=== PATIENT | female | born 2005 | race Hispanic/Latino ===

== ENCOUNTER 2025-06-10 00:01 | Emergency (ER) | payer SELFPAY ==
[2025-06-10] MEDS ORDERED: hydrOXYzine HCL 25 MG TAB ONE (01:17)
--- NOTE | 2025-06-10 01:26 | ER ---
Nurse's Notes [facility] Name: Ashley Fierro Age: 19 yrs Sex: Female : 2005 Arrival Date: 06/10/2025 Time: 00:01 Bed 15 Private MD: Diagnosis: Panic disorder [episodic paroxysmal anxiety] without agoraphobia Presentation: 06/10 00:10 Chief complaint: Patient states: CHEST PAIN THAT HAS BEEN GOING ON FOR THE PAST TWO ha1 DAYS AFTER SEEING BROTHER HAVING A SEIZURE. HAD A SIMILAR EPISODE ONE YEAR AGO. 00:10 Coronavirus screen: Client denies travel out of the [place] in the last 14 days. ha1 00:14 Ebola Screen: No symptoms or risks identified at this time. Initial Sepsis Screen: Does ha1 the patient meet any 2 criteria? No. Patient's initial sepsis screen is negative. Does the patient have a suspected source of infection? No. Patient's initial sepsis screen is negative. Risk Assessment: Do you want to hurt yourself or someone else? Patient reports no desire to harm self or others. Onset of symptoms was June 10, 2025. 00:14 Method Of Arrival: Ambulatory ha1 00:14 Acuity: MOE 3 ha1 Triage Assessment: 00:43 General: Appears comfortable. Pain: Complains of pain in chest Pain currently is 5 out ha1 of 10 on a pain scale. Quality of pain is described as radiating. Neuro: Level of Consciousness is awake, alert, obeys commands, Oriented to person, place, time, situation. Cardiovascular: Capillary refill < 3 seconds Patient's skin is warm and dry. Respiratory: Airway is patent Respiratory effort is even, unlabored, Respiratory pattern is regular, symmetrical. 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 - Infectious Disease History:: Denies. - Social history:: Smoking status: Patient denies any tobacco usage or history of. Screenin:37 [facility] ED Fall Risk Assessment (Adult) History of falling in the last 3 months, ss12 including since admission No falls in past 3 months (0 pts) Confusion or Disorientation No (0 pts) Intoxicated or Sedated No (0 pts) Impaired Gait No (0 pts) Mobility Assist Device Used No (0 pt) Altered Elimination No (0 pt) Score/Fall Risk Level 0 - 2 = Low Risk Oriented to surroundings, Maintained a safe environment, Educated pt \T\ family on fall prevention, incl call for assistance when getting out of bed, Assessed \T\ reinforced patient's understanding of fall precautions. Abuse screen: Denies threats or abuse. Denies injuries from another. 01:10 Nutritional screening: No deficits noted. Tuberculosis screening: No symptoms or risk ss12 factors identified. Assessment: 00:34 General: Appears in no apparent distress. Behavior is calm, cooperative, quiet. Pain: ss12 Denies pain. Pain: Pain began gradually, soreness in left arm. pt stated no more having the chest pain. Neuro: No deficits noted. Level of Consciousness is awake, alert, obeys commands, Oriented to person, place, time. Cardiovascular: No deficits noted. Patient's skin is warm and dry. Respiratory: No deficits noted. Airway is patent Respiratory effort is even, unlabored, Respiratory pattern is regular, symmetrical. GI: No deficits noted. No signs and/or symptoms were reported involving the gastrointestinal system. : No deficits noted. No signs and/or symptoms were reported regarding the genitourinary system. EENT: No deficits noted. No signs and/or symptoms were reported regarding the EENT system. Derm: No deficits noted. Skin is intact, Skin is dry, Skin is normal. Musculoskeletal: No deficits noted. No signs and/or symptoms reported regarding the musculoskeletal system. 01:30 Reassessment: Patient appears in no apparent distress at this time. Patient and/or ss12 family updated on plan of care and expected duration. Pain level reassessed. Patient is alert, oriented x 3, equal unlabored respirations, skin warm/dry/pink. Vital Signs: 00:10 BP 116 / 78; Pulse 91; Resp 17 S; Temp 98.1(O); Pulse Ox 100% on R/A; Weight 72.57 kg; ha1 Height 5 ft. 3 in. ; Pain 5/10; 00:10 Body Mass Index 28.34 (72.57 kg, 160.02 cm) ha 00:10 Pain Scale: Adult [facility] ED Course: 00:07 Patient arrived in ED. im 00:10 Curt Coreas FNP-C [facility]. dr5 00:10 Oscar Esquivel MD is Attending Physician. dr5 00:22 Miguelina Mcintyre, RN is Primary Nurse. ss12 00:38 Arm band placed on right wrist. ss12 00:43 Triage completed. ha1 01:09 Patient has correct armband on for positive identification. Provided Education on: plan ss12 of care. Client placed on continuous cardiac and pulse oximetry monitoring. NIBP monitoring applied. 01:09 No provider procedures requiring assistance completed. ss12 01:10 Patient maintains SpO2 saturation greater than 95% on room air. ss12 01:18 EKG done, by diagnostic technician. ts3 01:55 Patient did not have IV access during this emergency room visit. ss12 Administered Medications: 01:10 Drug: hydrOXYzine PO 25 mg PO once Route: PO; ss12 01:55 Follow up: Response: No adverse reaction ss12 Medication: 01:10 VIS not applicable for this client. ss12 Outcome: 01:25 Discharge ordered by . dr5 01:55 Discharged to home ambulatory, ss12 01:55 Condition: stable 01:55 Discharge instructions given to patient, family, Instructed on discharge instructions, follow up and referral plans. Demonstrated understanding of instructions, follow-up care, Prescriptions given X 1, 02:08 Patient left the ED. ss12 Signatures: Sharla Iglesias RN RN ha1 Ly Chapman Dustin, FNP-C PRODUCTION PATTERN MAKER-Cdr5 Lili Delgado ts3 Miguelina Mcintyre RN RN ss12 Corrections: (The following items were deleted from the chart) 00:51 00:14 Chief complaint: Patient states: CHEST PAIN THAT HAS BEEN GOING ON FOR THE PAST ha1 TWO DAYS AFTER SEEING BROTHER HAVING A SEIZURE. HAD A SIMILAR EPISODE ONE YEAR AGO ha1 00:51 00:14 Coronavirus screen: Client denies travel out of the [place] in the last 14 days. ha1 ha1 00:51 00:14 BP 116 / 78; Pulse 91bpm; Resp 17bpm; Spontaneous; Pulse Ox 100% RA; Temp 98.1F ha1 Oral; 72.57 kg; Height 5 ft. 3 in.; BMI: 28.3; Pain 5/10, Adult; ha1 02:06 02:05 Reassessment: Patient appears in no apparent distress at this time. Patient ss12 and/or family updated on plan of care and expected duration. Pain level reassessed. Patient is alert, oriented x 3, equal unlabored respirations, skin warm/dry/pink. ss12
--- NOTE | 2025-06-10 01:26 | EDPHYS ---
Physician Documentation [facility] Name: Ashley Fierro Age: 19 yrs Sex: Female : 2005 Arrival Date: 06/10/2025 Time: 00:01 Bed 15 Private MD: ED Physician Oscar Esquivel HPI: 06/10 01:22 This 19 yrs old Female presents to ER via Ambulatory with complaints of Chest dr5 Pain, Arm Pain. 01:22 Onset: The symptoms/episode began/occurred 2 day(s) ago. The patient has experienced dr5 similar episodes in the past, several times. Patient is a 19-year-old female with no past medical history coming in with left-sided upper chest pain that is been going on for the past 2 days. Patient reports that her chest gets worse when she is stressed. Patient reports that her brother has been diagnosed with brain cancer in which did left-sided chest pain started. Patient reports that she is stressed out often due to condition of brother. Patient reports she has not take any medications to try to alleviate chest pain. Patient denies nausea, vomiting, diarrhea, shortness of breath.. 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 - Infectious Disease History:: Denies. - Social history:: Smoking status: Patient denies any tobacco usage or history of. ROS: 01:22 Constitutional: as per hpi dr5 Exam: 01:22 Constitutional: This is a well developed, well nourished patient who is awake, alert, dr5 and in no acute distress. Head/Face: Normocephalic, atraumatic. Eyes: Pupils equal round and reactive to light, extra-ocular motions intact. Lids and lashes normal. Conjunctiva and sclera are non-icteric and not injected. Cornea within normal limits. Periorbital areas with no swelling, redness, or edema. ENT: Nares patent. No nasal discharge, no septal abnormalities noted. Tympanic membranes are normal and external auditory canals are clear. Oropharynx with no redness, swelling, or masses, exudates, or evidence of obstruction, uvula midline. Mucous membranes moist. Chest/axilla: Normal chest wall appearance and motion. Nontender with no deformity. No lesions are appreciated. Cardiovascular: Regular rate and rhythm with a normal S1 and S2. Normal PMI, no JVD. No pulse deficits. Respiratory: Lungs have equal breath sounds bilaterally, clear to auscultation. No rales, rhonchi or wheezes noted. No increased work of breathing, no retractions or nasal flaring. Back: No spinal tenderness. No costovertebral tenderness. Full range of motion. Skin: Warm, dry with normal turgor. Normal color with no rashes, no lesions, and no evidence of cellulitis. MS/ Extremity: Pulses equal, no cyanosis. Neurovascular intact. Full, normal range of motion. Neuro: Awake and alert, GCS 15, oriented to person, place, time, and situation. Cranial nerves II-XII grossly intact. Motor strength 5/5 in all extremities. Sensory grossly intact. Cerebellar exam normal. Normal gait. Vital Signs: 00:10 BP 116 / 78; Pulse 91; Resp 17 S; Temp 98.1(O); Pulse Ox 100% on R/A; Weight 72.57 kg; ha1 Height 5 ft. 3 in. ; Pain 5/10; 00:10 Body Mass Index 28.34 (72.57 kg, 160.02 cm) ha1 00:10 Pain Scale: Adult ha1 MDM: 00:10 Medical Screening Exam initiated dr5 01:16 Differential diagnosis: Panic attack, stress-induced anxiety, stress. Data reviewed: dr5 vital signs, nurses notes, EKG. I considered the following discharge prescriptions or medication management in the emergency department I discussed and recommended Over The Counter medications, Medications were administered in the Emergency Department. See MAR. Independent interpretation of the following test(s) in the Emergency Department EKG: See my EKG interpretation above. Historians other than the Patient: Parent: Mother at bedside. Care significantly affected by the following Social Determinants of Health: Poor access to healthcare and/or lack of insurance, Poor access to transportation, Problems related to employment. Scoring Tools HEART Score: History: ECG: Age: Risk Factors: Troponin: Total Score = 0. Counseling: I had a detailed discussion with the patient and/or guardian regarding the historical points, exam findings, and any diagnostic results supporting the discharge/admit diagnosis, the presence of at least one elevated blood pressure reading (>120/80) during this emergency department visit, the need for outpatient follow up, for definitive care, a family practitioner, to return to the emergency department if symptoms worsen or persist or if there are any questions or concerns that arise at home. Special discussion: I discussed with the patient/guardian in detail that at this point there is no indication for admission to the hospital. It is understood, however, that if the symptoms persist or worsen the patient needs to return immediately for re-evaluation. Based on the history and exam findings, there is no indication for further emergent testing or inpatient evaluation. I discussed with the patient/guardian the need to see the primary care provider for further evaluation of the symptoms. ED course: Will give patient hydroxyzine to take as needed for stress. Recommended patient alternate Tylenol Motrin as needed for pain and fever. Recommend patient follow with primary care doctor. All questions answered. Strict ER precautions given. 06/10 01:07 Order name: EKG - Nurse/Tech; Complete Time: 01:18 dr5 EC:16 Rate is 80 beats/min. Rhythm is regular. QRS [place] is Normal. [place] interval is normal at dr5 166 msec. QRS interval is normal at 102 msec. QT interval is normal at 376 msec. Administered Medications: 01:10 Drug: hydrOXYzine PO 25 mg PO once Route: PO; ss12 01:55 Follow up: Response: No adverse reaction ss12 Disposition: 03:52 Co-signature as Attending Physician, Oscar Esquivel MD I agree with the assessment sp4 and plan of care. I reviewed the patient's care provided by the Advanced Practice Provider and agree with the diagnosis and treatment plan. Disposition Summary: 06/10/25 01:25 Discharge Ordered Notes: Location: Home dr5 Condition: Stable dr5 Diagnosis - Panic disorder [episodic paroxysmal anxiety] without agoraphobia dr5 Followup: dr5 - With: Emergency Department - When: As needed - Reason: Worsening of condition Followup: dr5 - With: Private Physician - When: 1 - 2 days - Reason: Recheck today's complaints, Continuance of care, Re-evaluation by your physician Discharge Instructions: - Discharge Summary Sheet dr5 - Stress, Adult dr5 - Managing Anxiety, Adult dr5 Forms: - Medication Reconciliation Form dr5 - Patient Portal Instructions dr5 - Leadership Thank You Letter dr5 Prescriptions: - Hydroxyzine HCl 25 mg Oral tablet - take 1 tablet ORAL route every 6 hours As needed; 20 tablet; Refills: 0, dr5 Product Selection Permitted Signatures: Sharla Iglesias, RN RN ha1 Oscar Esquivel MD MD sp4 Curt Coreas, VERNON-C PROJECT ANALYST-Cdr5 Miguelina Mcintyre, SANDI RN ss12
[2025-06-10 02:13] VITALS: BP 116/78; TEMP 98.1; O2SAT 100
== END 2025-06-10 02:08 | disposition home or self-care (01) ==
LOC: ER 00:01
DX: F41.0 Panic disorder [episodic paroxysmal anxiety] (principal)
CPT/HCPCS: 93005; 99284

== ENCOUNTER 2025-06-24 22:04 | Emergency (ER) | payer SELFPAY ==
--- OUTSIDE RECORDS SUMMARY | 2025-06-24 22:08 | XMS REPORT | Continuity of Care Document ---
Author Name Unknown Address [address] [facility]. [address] [place] [id number] [facility] [place] Address [address] [facility]. 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 Ordering Clinician Indication Dosage Frequency Signature (SIG) Comments Components Source trazodone 50 mg tablet 8-19 00:00: 00 Yes 12mg Damian Chisholm Dose Unknown 9-01 00:00: 00 Yes Damian Chisholm Dose Unknown 5-12 00:00: 00 Yes Damianvivek Chisholm Dose Unknown 0 8-27 00:00: 00 Yes Damianvivek Chisholm Dose Unknown 8-27 00:00: 00 Yes Damian Suhail Chisholm Dose Unknown 8-27 00:00: 00 Yes Damian Chisholm Bromfed DM 2 mg-30 mg-10 mg/5 mL syrup 2016-10 0-17 00:00: 00 Yes 10mg/5 mL Damian Chisholm omeprazole 20 mg capsule,del ayed release 2016-10 0-09 00:00: 00 Yes 1mg Damian Chisholm loratadine 10 mg tablet 03-05 00:00: 00 Yes 1mg Damian Chisholm loratadine 5 mg/5 mL oral solution 03-01 00:00: 00 Yes 10mg/5 mL Damian Chisholm ranitidine 15 mg/mL syrup 03-01 00:00: 00 Yes 10mg/mL Damian Chisholm Immunizations Ordered Immunization Name Filled Immunization Name Date Status Comments Source Meningococcal MCV4O Meningococcal MCV4O 00:00:00 Completed Damian F Phan Influenza, seasonal, inj Influenza, seasonal, inj 2017-08-06 00:00:00 Completed Damian F Phan Vital Signs Vital Name Observation Time Observation Value Comments S oursandra BP Systolic 2025-06-22 11:30:00 108 mm[Hg] Step hen F Phan BP Diastolic 2025-06-22 11:30:00 51 mm[Hg] Jorge phen F Phan Weight Measured 2025-06-22 11:30:00 144.60 pounds Damian F Phan Height Measured 2025-06-22 11:30:00 63.00 inches Damian F Phan Body Temperature 2025-06-22 11:30:00 97.40 degrees Damian F Phan Heart Rate 2025-06-22 11:30:00 96.00 /min Sheeba en F Phan Respiratory Rate 2025-06-22 11:30:00 18.00 /min Damian F Phan Heart Rate 2025-06-16 09:37:00 82.00 /min Sheeba en F Phan Respiratory Rate 2025-06-16 09:37:00 16.00 /min Damian F Phan BP Systolic 2025-06-16 09:37:00 106 mm[Hg] Step hen F Phan BP Diastolic 2025-06-16 09:37:00 68 mm[Hg] Jorge phen F Phan Weight Measured 2025-06-16 09:37:00 145.60 pounds Damian F Phan Height Measured 2025-06-16 09:37:00 63.00 inches Damian F Phan Body Temperature 2025-06-16 09:37:00 98.20 degrees Damian F Phan BP Systolic 2023-06-04 11:49:00 103 mm[Hg] Step hen F Phan BP Diastolic 2023-06-04 11:49:00 70 mm[Hg] Jorge phen F Phan Weight Measured 2023-06-04 11:49:00 152.60 pounds Damian F Phan Height Measured 2023-06-04 11:49:00 64.00 inches Damian F Phan Body Temperature 2023-06-04 11:49:00 98.10 degrees Damian F Phan Heart Rate 2023-06-04 11:49:00 75.00 /min Sheeba en F Phan Respiratory Rate 2023-06-04 11:49:00 Damian F Phan BP Systolic 2022-06-29 10:15:00 106 mm[Hg] Step hen F Phan BP Diastolic 2022-06-29 10:15:00 73 mm[Hg] Jorge phen F Phan Weight Measured 2022-06-29 10:15:00 165.80 pounds Damian F Phan Height Measured 2022-06-29 10:15:00 64.00 inches Damian F Phan Body Temperature 2022-06-29 10:15:00 98.20 degrees Damian F Phan Heart Rate 2022-06-29 10:15:00 106.00 /min Step hen F Phan Respiratory Rate 2022-06-29 10:15:00 Damian F Phan BP Systolic 2019-06-24 10:44:00 100 mm[Hg] Step hen F Phan BP Diastolic 2019-06-24 10:44:00 67 mm[Hg] Jorge phen F Phan Weight Measured 2019-06-24 10:44:00 152.00 pounds Damian F Phan Height Measured 2019-06-24 10:44:00 63.39 inches Damian F Phan Body Temperature 2019-06-24 10:44:00 97.40 degrees Damian F Phan Heart Rate 2019-06-24 10:44:00 89.00 /min Sheeba en F Phan Respiratory Rate 2019-06-24 10:44:00 Damian F Phan BP Systolic 2019-02-25 14:52:00 112 mm[Hg] Step hen F Phan BP Diastolic 2019-02-25 14:52:00 70 mm[Hg] Jorge phen F Phan Weight Measured 2019-02-25 14:52:00 156.00 pounds Damian F Phan Height Measured 2019-02-25 14:52:00 63.00 inches Damian F Phan Body Temperature 2019-02-25 14:52:00 99.50 degrees Damian F Phan Heart Rate 2019-02-25 14:52:00 76.00 /min Sheeba en F Phan Respiratory Rate 2019-02-25 14:52:00 16.00 /min Damian F Phan BP Systolic 2019-02-12 11:19:00 112 mm[Hg] Step hen F Phan BP Diastolic 2019-02-12 11:19:00 73 mm[Hg] Jorge phen F Phan Weight Measured 2019-02-12 11:19:00 157.80 pounds Damian F Phan Height Measured 2019-02-12 11:19:00 63.00 inches Damian F Phan Body Temperature 2019-02-12 11:19:00 99.70 degrees Damian F Phan Heart Rate 2019-02-12 11:19:00 99.00 /min Sheeba en F Phan Respiratory Rate 2019-02-12 11:19:00 16.00 /min Damian F Phan Heart Rate 2017-11-08 09:36:00 84.00 /min Sheeba en F Phan Respiratory Rate 2017-11-08 09:36:00 16.00 /min Damian F Phan BP Systolic 2017-11-08 09:36:00 100 mm[Hg] Step hen F Phan BP Diastolic 2017-11-08 09:36:00 68 mm[Hg] Jorge phen F Phan Weight Measured 2017-11-08 09:36:00 135.80 pounds Damian F Phan Height Measured 2017-11-08 09:36:00 63.00 inches Damian F Phan Body Temperature 2017-11-08 09:36:00 98.10 degrees Damian F Phan BP Systolic 2017-08-23 11:08:00 107 mm[Hg] Step hen F Phan BP Diastolic 2017-08-23 11:08:00 65 mm[Hg] Jorge phen F Phan Weight Measured 2017-08-23 11:08:00 134.80 pounds Damian F Phan Height Measured 2017-08-23 11:08:00 63.00 inches Damian F Phan Body Temperature 2017-08-23 11:08:00 98.40 degrees Damian F Phan Heart Rate 2017-08-23 11:08:00 83.00 /min Sheeba en F Phan Respiratory Rate 2017-08-23 11:08:00 18.00 /min Damian F Phan BP Systolic 2017-08-17 09:34:00 114 mm[Hg] Step hen F Phan BP Diastolic 2017-08-17 09:34:00 71 mm[Hg] Jorge phen F Phan Weight Measured 2017-08-17 09:34:00 133.60 pounds Damian F Phan Height Measured 2017-08-17 09:34:00 63.00 inches Damian F Phan Body Temperature 2017-08-17 09:34:00 98.30 degrees Damian F Phan Heart Rate 2017-08-17 09:34:00 83.00 /min Sheeba en Suhail Chisholm Respiratory Rate 2017-08-17 09:34:00 16.00 /min Damian Chisholm BP Systolic 2017-08-14 15:55:00 108 mm[Hg] Usman Chisholm BP Diastolic 2017-08-14 15:55:00 70 mm[Hg] Jorge Chisholm Weight Measured 2017-08-14 15:55:00 137.00 pounds Damian Chisholm Height Measured 2017-08-14 15:55:00 62.50 inches Damian Chisholm Body Temperature 2017-08-14 15:55:00 98.40 degrees Damian Chisholm Heart Rate 2017-08-14 15:55:00 96.00 /min Sheeba en Suhail Chisholm Respiratory Rate 2017-08-14 15:55:00 18.00 /min Damian Chisholm Encounters Start Date/Time End Date/Time Encounter Type Admission Type Attending [facility] Care Department Encounter ID Source 2025-06-22 11:15:57 2025-06-22 11:15:57 Outpatient SFA SFA [id number] Damian Chisholm 2025-06-22 00:00:00 2025-06-22 00:00:00 Outpatient Visit [facility] [id number] Damian Chisholm 2025-06-16 09:29:46 2025-06-16 09:29:46 Outpatient SFA [facility] [id number] Damian Chisholm 2025-06-16 00:00:00 2025-06-16 00:00:00 Outpatient Visit [facility] [id number] Damian Chisholm 2023-09-18 11:56:57 2023-09-18 11:56:57 Outpatient SFA SFA [id number] Damian Chisholm 2023-06-04 11:48:24 2023-06-04 11:48:24 Outpatient SFA SFA [id number] Damian Chisholm Results Test Description Test Time Test Comments Results Result Co mments Source Damian ChisholmCOMPREHENSIVE METABOLIC [id number] 00:00:00* Test Item Value Reference Range Interpretation Comme nts GLUCOSE (test code = 2345-7) 67 mg/dL UREA NITROGEN (BUN) (test code = 3094-0) 11 mg/dL CREATININE (test code = 2160-0) 0.45 mg/dL EGFR (test code = 82722-5) 141 mL/min/1.73m2 BUN/CREATININE RATIO (test code = 3097-3) 24 (calc) SODIUM (test code = 2951-2) 138 mmol/L POTASSIUM (test code = 2823-3) 3.7 mmol/L CHLORIDE (test code = 2075-0) 104 mmol/L CARBON DIOXIDE (test code = 8-9) 21 mmol/L CALCIUM (test code = 85028-1) 9.6 mg/dL PROTEIN, TOTAL (test code = 2885-2) 8.1 g/dL ALBUMIN (test code = 1751-7) 4.8 g/dL GLOBULIN (test code = 66883-3) 3.3 g/dL(calc) ALBUMIN/GLOBULIN RATIO (test code = 1759-0) 1.5 (calc) BILIRUBIN, TOTAL (test code = 1975-2) 0.5 mg/dL ALKALINE PHOSPHATASE (test code = 6768-6) 75 U/L AST (test code = 1920-8) 19 U/L ALT (test code = 1742-6) 10 U/L Damian Maria, [id number] 09:17:55SPECIMEN NUMBER: [id number] CULTURE, URINE SPECIMEN NUMBER: [id number] SOURCE: URINE REPORT STATUS: FINAL FINAL REPORT: 07/01/2022 10-50,000 CFU/ML UROGENITAL ALEX PRESENT NO COMMON PATHOGENS UNLESS OTHERWISE INDICATED, ALL TESTING PERFORMED [facility] [address] [place] [address] SENIOR ACTUARIAL ANALYST: RUKHSANA HORTON M.D. CLIA NUMBER [id number] [place]. [id number], [id number] 00:00:00* Test Item Value Reference Range Interpretation Comme nts CULTURE, URINE (test code = 00074) SPECIMEN NUMBER: [id number] Damian Maria, [id number] 00:00:00* Test Item Value Reference Range Interpretation Comme nts CULTURE, URINE (test code = 88556) SPECIMEN NUMBER: [id number] Damian ChisholmH. PYLORI (BREATH), [id number] 13:25:43* Test Item Value Reference Range Interpretation Comme nts H. PYLORI (BREATH) (test code = 38457) POSITIVE NEGATIVE A PATIENT HEIGHT (test code = 97875) 73 INCHES PATIENT WEIGHT (test code = 59404) 172 LBS Methodology is i nfrared spectroscopy for carbon isotopes before andafter Pranactin-Citric solution. For pediatric patients (3-17 years),raw change from baseline (delta over baseline) is corrected forheight, weight, age, and gender using pediatric urea hydrolysiscalculator at http://[employer]ath[employer]patch. UNLESS OTHERWISE INDICATED, ALL TESTING PERFORMED [facility] [address] [place] [address] SENIOR ACTUARIAL ANALYST: RUKHSANA HORTON M.D. CLIA NUMBER [id number] [facility] [place] [place]. [id number] H. PYLORI (BREATH), [id number] 00:00:00* Test Item Value Reference Range Interpretation Comme nts H. PYLORI (BREATH) (test cod e = 26087) POSITIVE PATIENT HEIGHT (test code = 52650) 73 INCHES PATIENT WEIGHT (test code = 35451) 172 LBS Damian ChisholmH. PYLORI (BREATH), [id number] 00:00:00* Test Item Value Reference Range Interpretation Comme nts H. PYLORI (BREATH) (test cod e = 31814) POSITIVE PATIENT HEIGHT (test code = 78796) 73 INCHES PATIENT WEIGHT (test code = 32577) 172 LBS Damian ChisholmSARS-CoV-2 (COVID-19), RT-PCR/[id number] 10:57:01* Test Item Value Reference Range Interpretation Comments SARS-CoV-2 INTERPRETATION (test code = 10138) NEGATIVE SEE NOTE SARS-CoV-2 R NA NOT DETECTEDNegative results do not preclude SARS-CoV-2 infection and should notbe used as the sole basis for patient management decisions. Negativeresults must be combined with clinical observations, patient history,and epidemiological information. Optimum specimen types and timingfor peak viral levels during infections caused by SARS-CoV-2 have notbeen determined. Collection of multiple specimens or types ofspecimens may be necessary to detect virus. Improper specimencollection and handling, sequence variability under primers/probes,or organism present below the limit of detection may lead to falsenegative results. Positive and negative predictive values oftesting are highly dependent on prevalence. False negative testresults are more likely when prevalence is high. SOURCE (test code = 60426) NASOPHARYNGEAL Note: Methodolog y is Janice Gabrielle Real-Time RT-PCR. The expected result or reference range is NEGATIVE (Not Detected). For more information regarding COVID-19 testing to include clinicalinformation, methodology detail, intended use, FDA authorization andrecommended fact sheets for patients or healthcare providers, see NewTest Announcement: SARS-CoV-2 (COVID-19) by NAAT at URL below (note,fact sheets are provided by method given in report:[email or web address] Alternatively, see downloadable PDF fact sheet at:[email or web address] Note: Methodology is Janice Gabrielle Real-Time RT-PCR. The expected result or reference range is NEGATIVE (Not Detected). For more information regarding COVID-19 testing to include clinicalinformation, methodology detail, intended use, FDA authorization andrecommended fact sheets for patients or healthcare providers, see NewTest Announcement: SARS-CoV-2 (COVID-19) by NAAT at URL below (note,fact sheets are provided by method given in report:[email or web address] Alternatively, see downloadable PDF fact sheet at:[email or web address].[email or web address]-PCR UNLESS OTHERWISE INDICATED, ALL TESTING PERFORMED [facility] [address] [place] [id number] SENIOR ACTUARIAL ANALYST: RUHKSANA HORTON M.D. CLIA NUMBER [id number] [facility] [place]. [id number] SARS-CoV-2 (COVID-19) by RT-PCR (HIGH RISK)2021-11-09 00:00:00* Test Item Value Reference Range Interpretation Comme nts SARS-CoV-2 INTERPRETATION (test code = 29826) NEGATIVE SOURCE (test code = 49933) NASOPHARYNGEAL Damian Jang [id number] (COVID-19) by RT-PCR (HIGH RISK)2021-11-09 00:00:00* Test Item Value Reference Range Interpretation Comme nts SARS-CoV-2 INTERPRETATION (test code = 83237) NEGATIVE SOURCE (test code = 69581) NASOPHARYNGEAL Damian Jang BocmnjLEPL-GlL-2 (COVID-19) by RT-PCR (HIGH RISK)2020-12-01 00:00:00* Test Item Value Reference Range Interpretation Comme nts SARS-CoV-2 INTERPRETATION (t est code = 09171) NEGATIVE SOURCE (test code = 97454) NOT SPECIFIED Damian Jang [id number]-[id number] (COVID-19) by RT-PCR (HIGH RISK)2020-12-01 00:00:00* Test Item Value Reference Range Interpretation Comme nts SARS-CoV-2 INTERPRETATION (t est code = 68899) NEGATIVE SOURCE (test code = 62953) NOT SPECIFIED Damian ChisholmCOMPREHENSIVE METABOLIC [id number] 00:00:00* Test Item Value Reference Range Interpretation Comme nts GLUCOSE (test code = 2217) 85 MG/DL BUN (test code = 2208) 7 MG/DL CREATININE (test code = 2214) 0.46 MG/DL eGFR AMER. (test code = 27496) (NOTE) ML/MIN/1.73 eGFR NON- AMER. (test code = 11207) NO CALC ML/MIN/1.73 CALC BUN/CREAT (test code = 2235) 15 RATIO SODIUM (test code = 2231) 141 MEQ/L POTASSIUM (test code = 2228) 4.3 MEQ/L CHLORIDE (test code = 2215) 104 MEQ/L CARBON DIOXIDE (test code = 2206) 24 MEQ/L CALCIUM (test code = 2209) 9.8 MG/DL PROTEIN, TOTAL (test code = 2229) 7.7 G/DL ALBUMIN (test code = 2201) 4.7 G/DL CALC GLOBULIN (test code = 2240) 3.0 G/DL CALC A/G RATIO (test code = 2234) 1.6 RATIO BILIRUBIN, TOTAL (test code = 2207) 0.3 MG/DL ALKALINE PHOSPHATASE (test code = 2204) 132 U/L AST (test code = 2218) 30 U/L ALT (test code = 2219) 24 U/L Damian Jang AustinLIPID [id number] 00:00:00* Test Item Value Reference Range Interpretation Comme nts CHOLESTEROL (test code = 2210) 126 MG/DL TRIGLYCERIDES (test code = 2232) 87 MG/DL HDL CHOLESTEROL (test code = 2220) 53 MG/DL CALC LDL CHOL (test code = 2237) 56 MG/DL RISK RATIO LDL/HDL (test cod e = 2238) 1.05 RATIO Damian Jang [facility]PRE[facility]IVE METABOLIC [id number] 00:00:00* Test Item Value Reference Range Interpretation Comme nts GLUCOSE (test code = 2217) 85 MG/DL BUN (test code = 2208) 7 MG/DL CREATININE (test code = 2214) 0.46 MG/DL eGFR AMER. (test code = 66343) (NOTE) ML/MIN/1.73 eGFR NON- AMER. (test code = 52048) NO CALC ML/MIN/1.73 CALC BUN/CREAT (test code = 2235) 15 RATIO SODIUM (test code = 2231) 141 MEQ/L POTASSIUM (test code = 2228) 4.3 MEQ/L CHLORIDE (test code = 2215) 104 MEQ/L CARBON DIOXIDE (test code = 2206) 24 MEQ/L CALCIUM (test code = 2209) 9.8 MG/DL PROTEIN, TOTAL (test code = 2229) 7.7 G/DL ALBUMIN (test code = 2201) 4.7 G/DL CALC GLOBULIN (test code = 2240) 3.0 G/DL CALC A/G RATIO (test code = 2234) 1.6 RATIO BILIRUBIN, TOTAL (test code = 2207) 0.3 MG/DL ALKALINE PHOSPHATASE (test code = 2204) 132 U/L AST (test code = 2218) 30 U/L ALT (test code = 2219) 24 U/L Damian Jang AustinLIPID [id number] 00:00:00* Test Item Value Reference Range Interpretation Comme nts CHOLESTEROL (test code = 2210) 126 MG/DL TRIGLYCERIDES (test code = 2232) 87 MG/DL HDL CHOLESTEROL (test code = 2220) 53 MG/DL CALC LDL CHOL (test code = 2237) 56 MG/DL RISK RATIO LDL/HDL (test cod e = 2238) 1.05 RATIO Damian ChisholmCOMPREHENSIVE METABOLIC [id number] 00:00:00* Test Item Value Reference Range Interpretation Comme nts GLUCOSE (test code = 2217) 91 MG/DL BUN (test code = 2208) 11 MG/DL CREATININE (test code = 2214) 0.41 MG/DL eGFR AMER. (test code = 40713) (NOTE) ML/MIN/1.73 eGFR NON- AMER. (test code = 42653) NO CALC ML/MIN/1.73 CALC BUN/CREAT (test code = 2235) 27 RATIO SODIUM (test code = 2231) 143 MEQ/L POTASSIUM (test code = 2228) 4.1 MEQ/L CHLORIDE (test code = 2215) 104 MEQ/L CARBON DIOXIDE (test code = 2206) 23 MEQ/L CALCIUM (test code = 2209) 9.8 MG/DL PROTEIN, TOTAL (test code = 2229) 8.0 G/DL ALBUMIN (test code = 2201) 4.8 G/DL CALC GLOBULIN (test code = 2240) 3.2 G/DL CALC A/G RATIO (test code = 2234) 1.5 RATIO BILIRUBIN, TOTAL (test code = 2207) 0.5 MG/DL ALKALINE PHOSPHATASE (test code = 2204) 195 U/L AST (test code = 2218) 26 U/L ALT (test code = 2219) 19 U/L Damian ChisholmCBC W/AUTO [id number] 00:00:00* Test Item Value Reference Range Interpretation Comme nts WBC (test code = 1001) 6.0 K/UL RBC (test code = 1002) 4.83 M/UL HEMOGLOBIN (test code = 1003) 13.6 G/DL HEMATOCRIT (test code = 1004) 40.4 % MCV (test code = 1005) 83.6 fL MCH (test code = 1006) 28.2 PG MCHC (test code = 1007) 33.7 G/DL RDW (test code = 1038) 12.5 % NEUTROPHILS (test code = 1008) 50.9 % LYMPHOCYTES (test code = 1010) 41.0 % MONOCYTES (test code = 1011) 5.2 % EOSINOPHILS (test code = 1012) 2.7 % BASOPHILS (test code = 1013) 0.2 % PLATELET COUNT (test code = 1015) 334 K/UL Damian ChisholmH. PYLORI IgG, [id number] 00:00:00* Test Item Value Reference Range Interpretation Comme nts H. PYLORI IgG, QUAL (test co de = 4565) NEGATIVE Damian ChisholmCOMPREHENSIVE METABOLIC [id number] 00:00:00* Test Item Value Reference Range Interpretation Comme nts GLUCOSE (test code = 2217) 91 MG/DL BUN (test code = 2208) 11 MG/DL CREATININE (test code = 2214) 0.41 MG/DL eGFR AMER. (test code = 67280) (NOTE) ML/MIN/1.73 eGFR NON- AMER. (test code = 30201) NO CALC ML/MIN/1.73 CALC BUN/CREAT (test code = 2235) 27 RATIO SODIUM (test code = 2231) 143 MEQ/L POTASSIUM (test code = 2228) 4.1 MEQ/L CHLORIDE (test code = 2215) 104 MEQ/L CARBON DIOXIDE (test code = 2206) 23 MEQ/L CALCIUM (test code = 2209) 9.8 MG/DL PROTEIN, TOTAL (test code = 2229) 8.0 G/DL ALBUMIN (test code = 2201) 4.8 G/DL CALC GLOBULIN (test code = 2240) 3.2 G/DL CALC A/G RATIO (test code = 2234) 1.5 RATIO BILIRUBIN, TOTAL (test code = 2207) 0.5 MG/DL ALKALINE PHOSPHATASE (test code = 2204) 195 U/L AST (test code = 2218) 26 U/L ALT (test code = 2219) 19 U/L Damian ChisholmCBC W/AUTO [id number] 00:00:00* Test Item Value Reference Range Interpretation Comme nts WBC (test code = 1001) 6.0 K/UL RBC (test code = 1002) 4.83 M/UL HEMOGLOBIN (test code = 1003) 13.6 G/DL HEMATOCRIT (test code = 1004) 40.4 % MCV (test code = 1005) 83.6 fL MCH (test code = 1006) 28.2 PG MCHC (test code = 1007) 33.7 G/DL RDW (test code = 1038) 12.5 % NEUTROPHILS (test code = 1008) 50.9 % LYMPHOCYTES (test code = 1010) 41.0 % MONOCYTES (test code = 1011) 5.2 % EOSINOPHILS (test code = 1012) 2.7 % BASOPHILS (test code = 1013) 0.2 % PLATELET COUNT (test code = 1015) 334 K/UL Damian ChisholmH. PYLORI IgG, [id number] 00:00:00* Test Item Value Reference Range Interpretation Comme nts H. PYLORI IgG, QUAL (test co de = 4565) NEGATIVE Damian Chisholm Notes Date/Time Note Provider Source Damian Chisholm [facility]2025-08-19 00:00:00 Damian Chisholm [facility]
--- NOTE | 2025-06-24 22:30 | RAD REPORT ---
Procedure: Chest Single View HISTORY: Chest pain COMPARISON: none FINDINGS: The lungs appear clear of acute infiltrate. No significant pleural effusion noted. The heart is normal size. IMPRESSION: No acute abnormality is displayed.
[2025-06-24] MEDS ORDERED: FAMOTIDINE 20 MG/2 ML VIAL IV ONE (23:20)
[2025-06-24] MEDS ORDERED: ONDANSETRON 4 MG/2 ML VIAL ONE (23:20)
[2025-06-24] MEDS ORDERED: KETOROLAC 30 MG/ML INJ ONE (23:20)
[2025-06-24] MEDS ORDERED: NA CHLORIDE 0.9% 1,000 ML ONE (23:21)
[2025-06-24 23:49] LABS: Absolute Lymphocytes (CBC) 1.9 K/uL (0.7-4.9); Hematocrit 32.1 % (36.0-45.0); Hemoglobin 10.5 g/dL (12.0-15.0); MCH 24.8 pg (27.0-35.0); MCHC 32.5 g/dL (32.0-36.0); MCV 76.1 fL (80-100); MPV 9.5 fL (7.6-11.3); Nucleated RBC Absolute Count 0.0 (0-0); Nucleated Red Blood Cells % 0.0 % (0-0); RBC Red Blood Cell Count 4.22 M/uL (3.86-4.86); White Blood Count 7.00 thou/uL (4.3-10.9)
[2025-06-25 00:02] LABS: ALT/SGPT 19 U/L (13-56); AST/SGOT 15 U/L (15-37); Albumin 4.0 g/dL (3.4-5.0); Albumin/Globulin Ratio 1.0 (1.1-1.8); Alkaline Phosphatase 71 U/L (45-117); Anion Gap 8.6 mEq/L (5.0-15.0); BUN Blood Urea Nitrogen 5 mg/dL (7-18); Globulin 4.0 g/dL (2.3-3.5); Glucose Level 96 mg/dL (74-106); Lipase 34 U/L (13-75); Potassium 3.6 mEq/L (3.5-5.1)
[2025-06-25 00:06] LABS: Troponin High Sensitivity < 3.0 pg/mL (<58.9)
--- NOTE | 2025-06-25 00:27 | ER ---
Nurse's Notes [facility] Name: Ashley Fierro Age: 19 yrs Sex: Female : 2005 Arrival Date: 06/24/2025 Time: 22:04 Bed 24 Private MD: Diagnosis: Chest pain, unspecified Presentation: 06/24 22:15 Chief complaint: Patient states: chest pain off and on x 2 days. Coronavirus screen: kj2 Client denies travel out of the [place] in the last 14 days. Ebola Screen: No symptoms or risks identified at this time. Initial Sepsis Screen: Does the patient meet any 2 criteria? No. Patient's initial sepsis screen is negative. Does the patient have a suspected source of infection? No. Patient's initial sepsis screen is negative. Risk Assessment: Do you want to hurt yourself or someone else? Patient reports no desire to harm self or others. Onset of symptoms was June 24, 2025. 22:15 Method Of Arrival: Ambulatory [facility] 22:15 Acuity: MOE 3 kj2 Triage Assessment: 22:30 General: Appears in no apparent distress. Behavior is cooperative. Pain: Complains of kj2 pain in chest Pain currently is 4 out of 10 on a pain scale. Neuro: Level of Consciousness is awake, alert, obeys commands, Oriented to person, place, time, situation. Cardiovascular: Patient's skin is warm and dry. Respiratory: Airway is patent Respiratory effort is even, unlabored. GI: No signs and/or symptoms were reported involving the gastrointestinal system. : No signs and/or symptoms were reported regarding the genitourinary system. Historical: - Allergies: 23:43 No Known Allergies; kj2 - Immunization history:: Adult Immunizations unknown. - Infectious Disease History:: Denies. - Social history:: Smoking status: unknown. Screenin:30 [facility] ED Fall Risk Assessment (Adult) History of falling in the last 3 months, kj2 including since admission No falls in past 3 months (0 pts) Confusion or Disorientation No (0 pts) Intoxicated or Sedated No (0 pts) Impaired Gait No (0 pts) Mobility Assist Device Used No (0 pt) Altered Elimination No (0 pt) Score/Fall Risk Level 0 - 2 = Low Risk Maintained a safe environment, Hourly rounding (assess needs \T\ fall precautionary measures) done. Abuse screen: Denies threats or abuse. Denies injuries from another. Nutritional screening: No deficits noted. Tuberculosis screening: No symptoms or risk factors identified. Assessment: 22:30 General: see triage assessment. kj2 23:30 Reassessment: Patient appears in no apparent distress at this time. Patient and/or kj2 family updated on plan of care and expected duration. Pain level reassessed. Patient is alert, oriented x 3, equal unlabored respirations, skin warm/dry/pink. 23:46 Reassessment: Reassessment: Patient appears in no apparent distress at this time. kj2 Patient and/or family updated on plan of care and expected duration. Pain level reassessed. Patient is alert, oriented x 3, equal unlabored respirations, skin warm/dry/pink. Vital Signs: 22:30 BP 112 / 72 Supine; Pulse 94; Resp 12 S; Temp 98.4; Pulse Ox 100% on R/A; sa1 23:30 BP 136 / 84; Pulse 82; Resp 18; Pulse Ox 100% on R/A; kj2 ED Course: 22:05 Patient arrived in ED. jj6 22:11 June Randle FNP-C is PHCP. kb 22:11 Seth Hernandez MD is Attending Physician. kb 22:27 XRAY Chest (1 view) In Process Unspecified. EDMS 22:30 Patient has correct armband on for positive identification. Bed in low position. Call kj2 light in reach. Adult w/ patient. Provided Education on: call light. Client placed on continuous cardiac and pulse oximetry monitoring. NIBP monitoring applied. 22:32 EKG done, by ED staff. sa1 22:40 Missed attempt(s): 20 gauge in left antecubital area. kj2 22:45 Inserted saline lock: 20 gauge in right antecubital area, using aseptic technique. kj2 Blood collected. Flushed with 10 mL NS. 22:54 Tanya Castro RN is Primary Nurse. kj2 23:42 Triage completed. kj2 23:45 No provider procedures requiring assistance completed. kj2 23:47 Inserted saline lock: 20 gauge in left antecubital area, using aseptic technique. kj2 06/25 00:19 Report given to Linda Oneill RN. kj2 02:13 IV discontinued, intact, bleeding controlled, No redness/swelling at site. Pressure vc1 dressing applied. Administered Medications: 06/24 23:31 Drug: Famotidine IVP 20 mg IVP once; dilute with 10 mL 0.9% NaCl; give over 2 minutes kj2 Route: IVP; Site: right antecubital; 23:31 Drug: TORadol - Ketorolac IVP 15 mg IVP once Route: IVP; Site: right antecubital; kj2 23:31 Drug: Ondansetron IVP 4 mg IVP once; over 2 minutes Route: IVP; Site: right antecubital;kj2 23:31 Drug: NS 0.9% IV 1000 ml IV at 1 bolus Per protocol; to be given as a bolus over 60 kj2 minutes Route: IV; Rate: 1 bolus; Site: right antecubital; Medication: 23:47 VIS not applicable for this client. kj2 Outcome: 06/25 00:27 Discharge ordered by . panchito 02:12 Discharged to home ambulatory, vc1 02:12 Condition: good 02:12 Discharge instructions given to patient, Instructed on discharge instructions, follow up and referral plans. Demonstrated understanding of instructions, follow-up care, 02:13 Patient left the ED. vc1 Signatures: Dispatcher [employer] EDMS June Randle, ANTONIO VAZQUEZP-Olimpia Meloj6 Linda Bryan, RN RN vc1 Sultan keli Engle Krystal, SANDI RN kj2 Corrections: (The following items were deleted from the chart) 00:20 06/24 23:46 Reassessment: kj2 kj2 06/25 00:21 00:20 Reassessment: kj2 kj2
--- NOTE | 2025-06-25 00:27 | EDPHYS ---
Physician Documentation [facility] Name: Ashley Fierro Age: 19 yrs Sex: Female : 2005 Arrival Date: 06/24/2025 Time: 22:04 Bed 24 Private MD: ED Physician Seth Hernandez HPI: 06/24 22:34 This 19 yrs old Female presents to ER via Unassigned with complaints of Chest kb Pain. 22:34 Pt is a 19 year old female who presents for chest pain, upper abd pain, dizziness that kb started a few weeks ago, but has been worse today. States she was seen by PCP for this and told her iron was low. States she has been taking vitamins with iron since then, but symptoms aren't getting any better. Historical: - Allergies: 23:43 No Known Allergies; kj2 - Immunization history:: Adult Immunizations unknown. - Infectious Disease History:: Denies. - Social history:: Smoking status: unknown. ROS: 22:33 Constitutional: As per HPI kb Exam: 22:33 Constitutional: This is a well developed, well nourished patient who is awake, alert, kb and in no acute distress. Head/Face: Normocephalic, atraumatic. ENT: Moist Mucous membranes Cardiovascular: Regular rate Respiratory: Respirations even and unlabored. No increased work of breathing. Talking in full sentences Skin: Warm, dry with normal turgor. Normal color. MS/ Extremity: Pulses equal, no cyanosis. Neurovascular intact. Full, normal range of motion. Neuro: Awake and alert, GCS 15, oriented to person, place, time, and situation. 22:33 ECG was reviewed by the Attending Physician. 22:33 Abdomen/GI: Inspection: abdomen appears normal, Bowel sounds: normal, Palpation: soft, in all quadrants, mild abdominal tenderness, in the epigastric area, Vital Signs: 22:30 BP 112 / 72 Supine; Pulse 94; Resp 12 S; Temp 98.4; Pulse Ox 100% on R/A; sa1 23:30 BP 136 / 84; Pulse 82; Resp 18; Pulse Ox 100% on R/A; kj2 MDM: 22:11 Medical Screening Exam initiated kb 06/25 00:26 Differential diagnosis: arrhythmia, acute mi, chest wall pain, anemia, dehydration. kb Data reviewed: vital signs, nurses notes. Historians other than the Patient: Parent: mother. Counseling: I had a detailed discussion with the patient and/or guardian regarding the historical points, exam findings, and any diagnostic results supporting the discharge/admit diagnosis, lab results, radiology results, the need for outpatient follow up, a family practitioner, to return to the emergency department if symptoms worsen or persist or if there are any questions or concerns that arise at home. 06/24 22:17 Order name: CBC with Diff; Complete Time: 00:05 kb 06/24 22:17 Order name: CMP; Complete Time: 00:12 kb 06/24 22:17 Order name: Lipase; Complete Time: 00:12 kb 06/24 22:17 Order name: Troponin HS; Complete Time: 00:12 kb 06/24 22:17 Order name: XRAY Chest (1 view); Complete Time: 22:36 kb 06/24 22:17 Order name: EKG; Complete Time: 22:17 kb 06/24 22:17 Order name: IV Saline Lock; Complete Time: 23:31 kb 06/24 22:17 Order name: Labs collected and sent; Complete Time: 23:31 kb 06/24 22:17 Order name: EKG - Nurse/Tech; Complete Time: 23:31 kb EC/27 22:33 Rate is 87 beats/min. Rhythm is regular. QRS [place] is Normal. SC interval is normal at kb 152 msec. QRS interval is normal at 88 msec. QT interval is normal at 418 msec. Administered Medications: 23:31 Drug: Famotidine IVP 20 mg IVP once; dilute with 10 mL 0.9% NaCl; give over 2 minutes kj2 Route: IVP; Site: right antecubital; 23:31 Drug: TORadol - Ketorolac IVP 15 mg IVP once Route: IVP; Site: right antecubital; kj2 23:31 Drug: Ondansetron IVP 4 mg IVP once; over 2 minutes Route: IVP; Site: right antecubital;kj2 23:31 Drug: NS 0.9% IV 1000 ml IV at 1 bolus Per protocol; to be given as a bolus over 60 kj2 minutes Route: IV; Rate: 1 bolus; Site: right antecubital; Disposition: 06/25 07:36 I reviewed the patient's care provided by the Advanced Practice Provider and agree with tw7 the diagnosis and treatment plan. Disposition Summary: 06/25/25 00:27 Discharge Ordered Notes: Location: Home kb Condition: Stable kb Diagnosis - Chest pain, unspecified kb Followup: kb - With: Emergency Department - When: As needed - Reason: Worsening of condition Followup: kb - With: Private Physician - When: 2 - 3 days - Reason: Recheck today's complaints, Continuance of care, Re-evaluation by your physician Discharge Instructions: - Discharge Summary Sheet kb - Nonspecific Chest Pain, Adult, [id number] kb Forms: - Medication Reconciliation Form kb - Antibiotic Education kb - Prescription Opioid Use kb - Patient Portal Instructions kb - Leadership Thank You Letter kb Signatures: Dispatcher [employer] EDJune Hyatt, VERNON-Mai JUNIOR-Tanya Walker, RN RN kj2 Seth Hernandez MD MD tw7
[2025-06-25 14:04] VITALS: TEMP 98.4; O2SAT 100
[2025-06-25 14:05] VITALS: BP 136/84
== END 2025-06-25 02:13 | disposition home or self-care (01) ==
LOC: ER 22:04
DX: R07.9 Chest pain, unspecified (principal)
CPT/HCPCS: 36415; 71045; 80053; 83690; 84484; 85025; 93005; 96374; 96375; 99284; J2405; J7030

== ENCOUNTER 2025-08-10 06:50 | Day surgery (SDC) | payer OTHER ==
[2025-08-10] MEDS: Ringers Lactate 1,000 ML IV ONE (07:30)
[2025-08-10 07:51] LABS: Absolute Lymphocytes (CBC) 1.9 K/uL (0.7-4.9); Hematocrit 32.5 % (36.0-45.0); Hemoglobin 10.6 g/dL (12.0-15.0); MCH 24.3 pg (27.0-35.0); MCHC 32.6 g/dL (32.0-36.0); MCV 74.5 fL (80-100); MPV 9.7 fL (7.6-11.3); Nucleated RBC Absolute Count 0.0 (0-0); Nucleated Red Blood Cells % 0.1 % (0-0); RBC Red Blood Cell Count 4.36 M/uL (3.86-4.86); White Blood Count 5.70 thou/uL (4.3-10.9)
[2025-08-10 08:12] LABS: ALT/SGPT 23 U/L (13-56); AST/SGOT 20 U/L (15-37); Albumin 4.0 g/dL (3.4-5.0); Albumin/Globulin Ratio 1.0 (1.1-1.8); Alkaline Phosphatase 59 U/L (45-117); Anion Gap 9.3 mEq/L (5.0-15.0); BUN Blood Urea Nitrogen 5 mg/dL (7-18); Globulin 3.9 g/dL (2.3-3.5); Glucose Level 79 mg/dL (74-106); Lipase 24 U/L (13-75); Potassium 3.3 mEq/L (3.5-5.1)
[2025-08-10 08:16] LABS: Bilirubin Indirect, Calculated 0.2 mg/dL (0.2-0.8)
[2025-08-10] MEDS ORDERED: ROCURONIUM 50 MG/5 ML VIAL IV ONE (08:23)
[2025-08-10] MEDS ORDERED: KETOROLAC 30 MG/ML INJ ONE (08:23)
[2025-08-10] MEDS ORDERED: ONDANSETRON 4 MG/2 ML VIAL ONE (08:23)
[2025-08-10] MEDS ORDERED: LIDOCAINE 2% MPF 5 ML VIAL ONE (08:23)
[2025-08-10] MEDS ORDERED: FENTANYL CITR 100 MCG/2 ML ONE (08:24)
[2025-08-10] MEDS ORDERED: MIDAZOLAM HCL 2 MG/2 ML INJ ONE (08:24)
[2025-08-10] MEDS: CEFOXITIN SODIUM 1 GM/VIAL ONE (09:12)
[2025-08-10] MEDS ORDERED: NEOSTIGMINE 1 MG/ML -10 ML VIAL ONE (09:58)
[2025-08-10] MEDS ORDERED: GLYCOPYRROLATE 0.2 MG/ML SYR ONE (09:58)
[2025-08-10] MEDS ORDERED: Ringers Lactate 1,000 ML IV ONE (10:06)
--- NOTE | 2025-08-10 10:10 | P.BOP ---
Preoperative diagnosis: acute cholecystitis, symptomatic cholelithiasis Postoperative diagnosis: same Primary procedure: Laparoscopic cholecystectomy Estimated blood loss: <10cc Specimen: gb Findings: as above Anesthesia: General Complications: None Transferred to: Recovery Room Condition: Good
[2025-08-10] MEDS: SUGAMMADEX SODIUM 200 MG/2 ML VIAL IV ONE (10:22)
[2025-08-10] MEDS: HYDROMORPHONE HCL 0.5 MG/0.5 ML INJ ONE ×2 (10:38→10:50)
[2025-08-10] MEDS: ONDANSETRON 4 MG/2 ML VIAL ONE (10:41)
[2025-08-10] MEDS: PROMETHAZINE INJ 25 MG/ML AMP ONE (10:43)
[2025-08-10] MEDS: CODEINE 30MG/APAP 300MG TAB ONE (11:40)
[2025-08-10 12:16] VITALS: BP 112/57; TEMP 98.2; O2SAT 100
--- NOTE | 2025-08-10 12:22 | OP ---
Date of Procedure: 08/10/2025 Surgeon: Anil Barber MD Preoperative Diagnoses: Acute cholecystitis, symptomatic cholelithiasis. Postoperative Diagnoses: Acute cholecystitis, symptomatic cholelithiasis. Procedure: Laparoscopic cholecystectomy. Estimated Blood Loss: Less than 10 cc. Specimen: Gallbladder. Anesthesia: General plus local. Complications: None. Indications: This is a case of a 19-year-old patient comes to us with acute cholecystitis, symptomat ic cholelithiasis. The benefits, alternatives, and risks of laparoscopic, possible open cholecystect sarah were fully explained, which include, but not limited to infection, bleeding, damage to adjacent s tructures, anesthesia complication, choledocholithiasis, bile leak, pancreatitis, PA, and even . She also understands this may not relieve the symptoms. She might need more than one surgical inte rvention. She understood, signed a consent. Procedure In Detail: The patient was brought to the operating room, placed in supine position. Ane sthesia was induced without complication. Abdominal area was prepped and draped in a sterile fashion . Marcaine 0.5% was injected for local anesthetic followed by sharp incision of the skin in the infr aumbilical region. Incision was carried down to fascia, which was opened under direct vision. Perit oneum was encountered, opened under direct vision. Vicryl #1 placed inside the fascia. Melchor troca r was carefully introduced. Pneumoperitoneum was obtained. I placed 3 more trocars, 5 mm each one o f them, 1 in epigastric area, 2 in the right upper quadrant using same technique, which consisted of local anesthetic, sharp incision of the skin, introduction of the trocars under direct vision. This allowed me to put a grasper in the fundus of the gallbladder, another grasper in infundibulum retract ing the gallbladder in the inferolateral fashion exposing the triangle of [place]ot, obtaining critical v iew. Cystic duct and cystic artery were clearly isolated, freed circumferentially, and a connection between those and the gallbladder were clearly identified. I proceeded to ligate those by using at l east 3 clips proximal, 1 clip distal, ligation in middle. Same was done with the cystic artery. No bile leak, no bleeding. The gallbladder was removed from liver using Bovie cauterizer and removed fr om abdominal cavity using EndoCatch through the umbilical incision. The area was inspected once agai n. No bile leak, no bleeding. . At that moment, I proceeded to remove the trocars under direct vision, deflated pneumoperitoneum. Closed the fascia with #1 Vicryl. Irrigated subcutaneous tissue, closed the subcutaneous tissue and skin with Monocryl and Steri-Strips on top. Sponge count and instrument counts were correct. The patient tolerated the procedure well. The patient was sent to recovery in stable condition. KENROY/DARNELL Voice ID: [id number] Report ID: [id number]
[2025-08-10 21:29] LABS: Urine Specific Gravity/Preg 1.015 (1.005-1.030)
== END 2025-08-10 12:23 | disposition home or self-care (01) ==
LOC: OR 06:50
PROVIDERS: ATTEND Surgery
PROC: 0FT44ZZ Resection of Gallbladder, Percutaneous Endoscopic Approach (ICD-10-PCS; principal; 2025-08-10 09:15)
DX: K80.10 Calculus of gallbladder with chronic cholecystitis without obstruction (principal); R10.11 Right upper quadrant pain
CPT/HCPCS: 85025; 80048; 36415; 81025; 80076; 88304; 83690; 47562; J1885; J2550; J2704; J2710; J2003; J2250; J3010; J1100; J1171 ×2; J0694; J2405 ×2; J7120 ×2